=== PATIENT | male | born 1980 ===

== ENCOUNTER 2021-11-17 17:47 | Emergency (ER) | payer SELFPAY ==
[2021-11-17 18:00] VITALS: BP 160/88
== END 2021-11-17 20:50 | disposition left against medical advice (07) ==
LOC: ED 17:47
DX: M54.9 Dorsalgia, unspecified (principal); R51.9 Headache, unspecified; Z53.21 Procedure and treatment not carried out due to patient leaving prior to being seen by health care provider; V89.2XXA Person injured in unspecified motor-vehicle accident, traffic, initial encounter; Y93.89 Activity, other specified; Y92.89 Other specified places as the place of occurrence of the external cause; Y99.8 Other external cause status